=== PATIENT | female | born 2000 ===

== ENCOUNTER 2023-06-11 16:57 | Observation (INO) | payer BC, SELFPAY ==
[2023-06-11] MEDS ORDERED: Ondansetron PF 4 MG/2 ML Vial IVP PRN (17:45)
[2023-06-11] MEDS ORDERED: Acetaminophen 325 MG TAB PO PRN (17:45)
[2023-06-11] MEDS ORDERED: traMADol HCl 50 MG TAB PO PRN (17:47)
[2023-06-11 18:01] VITALS: BMI 25.2
[2023-06-11] MEDS ORDERED: FLU VACC QS2023-24(6MOS UP)/PF 60 MCG/0.5 ML SYRINGE IM ONE (18:45)
[2023-06-11 18:48] LABS: ALT (SGPT) 118 U/L (8-55); AST (SGOT) 371 U/L (5-34); Albumin 3.9 g/dL (3.5-5.0); Alkaline Phosphatase 45 U/L (40-110); Anion Gap 15 mmol/L (10-20); BUN (Urea Nitrogen) 8 mg/dL (7.0-18.7); Bilirubin, Total 0.3 mg/dL (0.2-1.2); Calc. Creatinine Clearance 128 mL/min (70-130); Calcium 8.7 mg/dL (7.8-10.44); Carbon Dioxide 22 mmol/L (22-29); Chloride 108 mmol/L (98-107); Estimated GFR 120; Glucose 81 mg/dL (70-105); Potassium 3.9 mmol/L (3.5-5.1); Protein, Total 6.9 g/dL (6.0-8.3); Sodium 141 mmol/L (136-145)
[2023-06-11 19:25] LABS: CK (CPK) 17988 U/L (29-168)
[2023-06-11] MEDS: Sodium Chloride 0.9% 1,000 ML IV SCH (19:45)
[2023-06-11] MEDS ORDERED: Nitrofurantoin Monohyd/M-Cryst 100 MG CAP PO SCH (22:15)
[2023-06-12] MEDS: Sodium Chloride 0.9% 1,000 ML IV SCH ×5 (00:30→21:14)
[2023-06-12 04:52] LABS: #Basophils 0.1 10x3/uL (0.0-0.2); #Eosinphils 0.3 10x3/uL (0.0-0.5); #Monocytes 0.6 10x3/uL (0.0-1.1); #Neutrophils 2.9 10x3/uL (1.5-8.4); %Basophils 0.8 % (0.0-2.0); %Eosinophils 4.3 % (0.0-6.0); %Lymphocytes 38.1 % (18.0-47.0); %Monocytes 9.4 % (0.0-10.0); %Neutrophils 47.2 % (40.0-75.0); Hematocrit 34.3 % (34.9-44.5); Mean Corpuscular Hemoglobin 32.7 pg (27.0-33.0); Mean Corpuscular Volume 93.5 fl (81.6-98.3); Mean Platelet Volume 10.8 fl (7.4-10.4); Platelet Count 189 10x3/uL (150-450); RBC Distribution Width 11.7 % (11.5-14.5); Red Blood Cell (RBC) Count 3.67 10x6/uL (3.90-5.03); White Blood Cell (WBC) Count 6.1 10x3/uL (3.5-10.5)
[2023-06-12 04:58] LABS: Anion Gap 13 mmol/L (10-20); BUN (Urea Nitrogen) 6 mg/dL (7.0-18.7); Calc. Creatinine Clearance 137 mL/min (70-130); Calcium 8.4 mg/dL (7.8-10.44); Carbon Dioxide 24 mmol/L (22-29); Chloride 108 mmol/L (98-107); Estimated GFR 126; Glucose 94 mg/dL (70-105); Potassium 3.7 mmol/L (3.5-5.1); Sodium 141 mmol/L (136-145)
[2023-06-12 05:12] LABS: CK (CPK) 14764 U/L (29-168)
[2023-06-12] MEDS: Nitrofurantoin Monohyd/M-Cryst 100 MG CAP PO SCH ×2 (10:14→21:14)
[2023-06-13 04:40] LABS: #Basophils 0.1 10x3/uL (0.0-0.2); #Eosinphils 0.3 10x3/uL (0.0-0.5); #Monocytes 0.7 10x3/uL (0.0-1.1); #Neutrophils 2.5 10x3/uL (1.5-8.4); %Basophils 1.1 % (0.0-2.0); %Eosinophils 5.2 % (0.0-6.0); %Lymphocytes 43.3 % (18.0-47.0); %Monocytes 11.4 % (0.0-10.0); %Neutrophils 38.8 % (40.0-75.0); Hemoglobin 12.2 g/dL (12.0-15.5); Mean Corpuscular HGB CONC 34.9 g/dL (32.0-36.0); Mean Corpuscular Hemoglobin 32.3 pg (27.0-33.0); Mean Corpuscular Volume 92.6 fl (81.6-98.3); Mean Platelet Volume 10.2 fl (7.4-10.4); Platelet Count 197 10x3/uL (150-450); RBC Distribution Width 11.8 % (11.5-14.5); Red Blood Cell (RBC) Count 3.78 10x6/uL (3.90-5.03); White Blood Cell (WBC) Count 6.3 10x3/uL (3.5-10.5)
[2023-06-13 04:44] LABS: Anion Gap 13 mmol/L (10-20); BUN (Urea Nitrogen) 8 mg/dL (7.0-18.7); Calc. Creatinine Clearance 127 mL/min (70-130); Calcium 8.5 mg/dL (7.8-10.44); Carbon Dioxide 26 mmol/L (22-29); Chloride 106 mmol/L (98-107); Estimated GFR 119; Glucose 101 mg/dL (70-105); Potassium 3.7 mmol/L (3.5-5.1); Sodium 141 mmol/L (136-145)
[2023-06-13 05:21] LABS: CK (CPK) 10135 U/L (29-168)
[2023-06-13] MEDS: Sodium Chloride 0.9% 1,000 ML IV SCH ×2 (08:12→12:12)
[2023-06-13] MEDS: Nitrofurantoin Monohyd/M-Cryst 100 MG CAP PO SCH (09:32)
[2023-06-13 12:21] VITALS: BP 130/81; TEMP 97.8
== END 2023-06-13 15:32 | disposition home or self-care (01) ==
LOC: CSHTELE 17:33
PROVIDERS: ADMIT Internal Medicine; ATTEND Internal Medicine
DX: M62.82 Rhabdomyolysis (principal); Z88.0 Allergy status to penicillin; Z88.8 Allergy status to other drugs, medicaments and biological substances
CPT/HCPCS: 36415; 80048; 80053; 82550; 85025; G0378; J7050